=== PATIENT | male | born 1940 | race Caucasian/White ===

== ENCOUNTER 2018-06-04 07:45 | Emergency (ER) | payer MEDICARE, MEDICAID ==
[2018-06-04] MEDS ORDERED: NS 0.9% 1000 ML* 1,000 ML IV ONE (07:46)
[2018-06-04] MEDS ORDERED: Iodixanol* (CONTRAST) 320 MG/ML 100 ML SDV IV ONE (08:00)
--- NOTE | 2018-06-04 08:14 | RAD ---
HISTORY: Neurological changes/code farrar COMPARISONS: None TECHNIQUE: Multiple contiguous axial CT scans were obtained of the head without intravenous contrast. FINDINGS: HEMORRHAGE/INFARCT: There is no hemorrhage or acute infarct. MASSES/SHIFT: There is no mass or shift. EXTRA-AXIAL SPACES: There are no extra-axial fluid collections. SULCI AND VENTRICLES: There is mild diffuse and proportional enlargement of the sulci and ventricles. CEREBRUM: There are no focal parenchymal abnormalities. BRAINSTEM: There are no focal parenchymal abnormalities. CEREBELLUM: There are no focal parenchymal abnormalities. 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 There is calcification of the distal vertebral arteries, basilar artery, cavernous segments of the internal carotid arteries bilaterally. PARANASAL SINUSES: The paranasal sinuses are clear. ORBITS: The orbits are unremarkable. BONES AND SOFT TISSUE: No bone or soft tissue abnormalities are noted. OTHER: None IMPRESSION: 1. NO ACUTE INTRACRANIAL PATHOLOGY. 2. 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 CHRISTY IN THE EMERGENCY DEPARTMENT AT APPROXIMATELY 7:56 AM ON JUNE 04, 2018 .
--- NOTE | 2018-06-04 08:16 | ED ---
Neurological HPI - HPI Summary HPI Summary: Patient is a 77 y/o M BIBA w/ c/o possible clay jerome. 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 Pt's called EMS for stroke Sx, increased weakness and no talking. Pt declined from normal basline per . Last time patient was known to be well was yesterday at 2300. Patient reportedly woke up with Sx. Per EMS, patient is unresponsive, experiencing right-side deficit, and left side pinpoint deficit. Dr. Goss was present upon patient arrival. EMS reports no change in Sx since intial call except left eyeball. Patient was still unable to talk upon arrival and was on oxygen. He was immediately sent for CT scans, one with contrast and another without. Patient is a level 5 caveat. - History of Current Complaint Stated Complaint: CLAY JEROME Time Seen by Provider: 06/04/18 07:46 Hx Obtained From: Family/General Assignment Reporter - , EMS Onset/Duration: Started hours ago - onset this morning, Still Present Timing: Constant Neurological Deficit Location: RUE, RLE Character: Other: - patient is unresponsive, experiencing right side deficit ( right facial droop, inability to move RLE and RUE) and left side pinpoint deficit. Episode Lasting: Hours Associated Signs and Symptoms: Positive: Weakness - right sided deficit (right facial droop, no movement in RLE and RUE), left side pinpoint deficit, unresponsive., Impaired Speech - unresponsive - Allergy/Home Medications Allergies/Adverse Reactions: Allergies Allergy/AdvReac Type Severity Reaction Status Date / Time No Known Allergies Allergy Verified 06/04/18 08:30 Home Medications: Home Medications Unobtainable 06/04/18 [History Confirmed 06/04/18] PMH/Surg Hx/FS Hx/Imm Hx - Additional Comments History Additional Comments: level 5 caveat Review of Systems Neurological: Other - unable to talk, right side facial drop, unable to move RLE and RUE. left pinpoint deficit, left eyeball drift All Other Systems Reviewed And Are Negative: No - Comments Additional Review of Systems Comments: level 5 caveat Physical Exam - Summary Physical Exam Summary: GENERAL: Patient is a well developed and nourished male who is lying comfortable in the stretcher. Patient is not in any acute respiratory distress. HEAD AND FACE: Normocephalic EYES: PERRLA, EOMI x 2. EARS: Hearing grossly intact. MOUTH: Oropharynx within normal limits. NECK: Supple, trachea is midline, no adenopathy, no JVD, no carotid bruit. CHEST: Symmetric, no tenderness at palpation LUNGS: Clear to auscultation bilaterally. No wheezing or crackles. CVS: Regular rate and rhythm, S1 and S2 present, no murmurs or gallops appreciated. ABDOMEN: Soft, non-tender. Bowel sounds are normal. No abdominal abnormal pulsations. EXTREMITIES: Full ROM in all major joints, no edema, no cyanosis or clubbing. NEURO: Patient is unable to talk; see stroke scale, which was 26 SKIN: Dry and warm Triage Information Reviewed: Yes Vital Signs On Initial Exam: Initial Vitals Pulse Ox 94 06/04/18 07:47 Vital Signs Reviewed: Yes Diagnostics - Laboratory Result Diagrams: 06/04/18 08:26 06/04/18 08:26 Lab Statement: Any lab studies that have been ordered have been reviewed, and results considered in the medical decision making process. - Radiology CTA Head Xray Interpretation: Positive (See Comments) Radiology Interpretation Completed By: Radiologist - IMPRESSION: 1. ATHEROSCLEROSIS. 2. APPROXIMATELY 30% LEFT INTERNAL CAROTID ARTERY STENOSIS BY NASCET CRITERIA. NO RIGHT INTERNAL CAROTID ARTERY STENOSIS BY NASCET CRITERIA. 3. THERE IS MODERATE STENOSIS OF THE P1 SEGMENT OF THE RIGHT POSTERIOR CEREBRAL ARTERY. 4. 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 5. THERE ARE MULTIPLE THYROID NODULES WITH DIFFUSE ENLARGEMENT OF THE RIGHT LOBE OF THE THYROID. RECOMMEND CONSIDERATION OF CORRELATION WITH DEDICATED IMAGING OF THE THYROID IN THE NONACUTE SETTING. THIS REPORT WAS REVIEWED BY ED PHYSICIAN. - CT CT Head CT Interpretation: Positive (See Comments) CT Interpretation Completed By: Radiologist - No acute intracranial pathology; atherosclerosis with dolichoectasia of the vertebrobasilar system. This report was reviewed by ED physician. CXR CT Interpretation: Positive (See Comments) CT Interpretation Completed By: Radiologist - Low lung volumes with linear atelectasis of right lung base. This report was reviewed by ED physician. - EKG 0839 Cardiac Rate: NL - Rate of 88 BPM EKG Interpretation: some non-specific intraventricular delay, Q-waves in inferior leads NIH Scale - NIH Scale Level of Consciousness: Responds to Minor Stimulation Ask Patient the Month and His/Her Age: Neither Correct/Aphasic Ask Pt to Open/Close Eyes and Scrap Handler/Release Non-Paretic Hand: Neither Correctly Best Gaze (Only Horizontal Eye Movement): Partial Gaze Palsy Visual Field Testing: Partial Hemianopia Facial Paresis-Pt to Smile & Close Eyes or Grimace Symmetry: Partial Paralysis Motor Function - Right Arm: No Movement Motor Function - Left Arm: Drifts LT 10 seconds Motor Function - Right Leg: No Movement Motor Function - Left Leg: Drifts LT 10 seconds Limb Ataxia-Must be out of Proportion to Weakness Present: Absent Sensory (Use Pinprick to Test Arms/Legs/Trunk/Face): Normal Best Language (Describe Picture, Name Items): Mute/Global Aphasia Dysarthria (Read Several Words): Unintelligible or Mute Extinction and Inattention: Profound Jorge-Inattention Total Score: 26 Re-Evaluation - Re-Evaluation First Eval Re-Evaluation Time: 08:21 Comment: Patient returned from scans. In the room, patient is still unable to speak. He will be intubated. Course/Dx - Course Assessment/Plan: Patient is a 77 y/o M BIBA w/ c/o possible code charan. 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 Pt's called EMS for stroke Sx, increased weakness and no talking. Pt declined from normal basline per . Last time patient was known to be well was yesterday at 2300. Patient reportedly woke up with Sx. Per EMS, patient is unresponsive, experiencing right -side deficit, and left side pinpoint deficit. Dr. Goss was present upon patient arrival. EMS reports no change in Sx since intial call except left eyeball. Patient was still unable to talk upon arrival and was on oxygen. He was immediately sent for CT scans, one with contrast and another without. Patient is a level 5 caveat. NIH was 26. Patient was given 300 mg of rectal aspirin. Results of EKG, CXR, and CTs noted above. Patient was re-evaulated at 0821, still unable to talk, and intubated. Dr. Silva was consulted on patient's case. After seeing patient, he recommends transfer to [facility]. He called [facility] and Dr. Dillon accepts for admission. He will transfered via airlift and diagnosed with left acute ischemic MCA. - Diagnoses Provider Diagnoses: Acute ischemic left MCA stroke During the Visit The Following Alert/Code Occurred: Clay Rowley - called at 0732, 15 minutes prior to ETA - Physician Notifications Discussed Care Of Patient With: Kevin Scott Time Discussed With Above Provider: 07:55 Instructed by Provider To: Other - Dr. Abarca called to communicate results of CT Head to Dr. Goss. 0810 - Dr. Silva will come down to evaluate patient. 0841 -- Dr. Silva evaluated patient. He notes patient is likely experiencing left MCA, TPA not possible as last known time well was 2300 yesterday. No clot is visualized on studies done, Dr. Silva will call [facility] to attempt to have patient air-lifted. 0850 - patient will be transferred to [facility] for further care. Accepting for admission is Dr. Dillon. - Critical Care Time Critical Care Time: 30-74 min - 70 minutes Discharge - Sign-Out/Discharge Documenting (check all that apply): Patient Departure - transfer - Discharge Plan Condition: Fair Disposition: TRANS HIGHER LVL OF CARE FAC Referrals: No Primary Care Phys,NOPCP [Primary Care Provider] - - Billing Disposition and Condition Condition: FAIR Disposition: Trans Higher Lvl of Care Fac - Attestation Statements Document Initiated by Scribe: Yes Documenting Scribe: Joey Maurice Provider For Whom Scribe is Documenting (Include Credential): Arlene Goss Scribe Attestation: Joey Springer scribed for Arlene Goss on 06/04/18 at 0919. Scribe Documentation Reviewed: Yes Provider Attestation: The documentation as recorded by the Joey arvizu accurately reflects the service I personally performed and the decisions made by Arlene ya
[2018-06-04 08:41] LABS: Hematocrit 45 % (42-52); Hemoglobin 15.1 g/dl (14.0-18.0); Mean Corpuscular HGB Conc 34 g/dl (31-36); Mean Corpuscular Hemoglobin 31 pg (27-31); Mean Corpuscular Volume 93 fL (80-94); Mean Platelet Volume 8.8 um3 (7.4-10.4); Platelet Count 97 10^3/ul (150-450); Red Blood Count 4.83 10^6/ul (4.00-5.40); Red Cell Distribution Width 14 % (10.5-15); White Blood Count 5.9 10^3/ul (3.5-10.8)
--- NOTE | 2018-06-04 08:48 | RAD ---
HISTORY: stroke COMPARISONS: Head CT dated June 04, 2018 TECHNIQUE: Multiple contiguous axial CT scans were obtained of the head and neck after the administration of nonionic intravenous contrast timed to the systemic arterial phase of contrast enhancement. Coronal and sagittal multiplanar reformations are submitted for review. Multiple 3-D maximum intensity projection reconstructions are also submitted for review. FINDINGS: CTA NECK: AORTIC ARCH: There is a normal three-vessel branching pattern of the aortic arch. There is no ostial or proximal stenosis of the cephalic great vessels. RIGHT VERTEBRAL ARTERY: The right vertebral artery is patent along its course, without stenosis. LEFT VERTEBRAL ARTERY: The left vertebral artery is patent along its course, without stenosis. DOMINANCE: The vertebral arteries are codominant. RIGHT COMMON CAROTID ARTERY: The right common carotid artery is patent. The right carotid bifurcation occurs at C3-C4 RIGHT INTERNAL CAROTID ARTERY: There is atheromatous disease of the right carotid bifurcation, without right internal carotid artery stenosis by NASCET criteria. RIGHT EXTERNAL CAROTID ARTERY: The right external carotid artery is unremarkable. LEFT COMMON CAROTID ARTERY: The left common carotid artery is patent. The left carotid bifurcation occurs at C3-C4 LEFT INTERNAL CAROTID ARTERY: There is eccentric noncalcified plaque of the left carotid bifurcation resulting in approximately 30% left internal carotid artery stenosis by NASCET criteria. LEFT EXTERNAL CAROTID ARTERY: The left external carotid artery is unremarkable. VENOUS CIRCULATION: The venous system is unremarkable. SALIVARY GLANDS: The parotid glands, submandibular glands, sublingual glands are normal. NASAL CAVITY/NASOPHARYNX: The nasal cavity and nasopharynx are normal. ORAL CAVITY/OROPHARYNX: The oral cavity and oropharynx are unremarkable. LARYNGEAL APPARATUS/HYPOPHARYNX: The laryngeal apparatus and hypopharynx are normal. UPPER AIRWAY/UPPER ESOPHAGUS: The visualized upper airway and esophagus are normal. LUNG APICES: The lung apices are clear. THYROID GLAND: The thyroid gland is heterogeneous with diffuse enlargement of the right thyroid with multiple right-sided nodules. LYMPH NODES: There is no lymphadenopathy by size criteria. BONES AND SOFT TISSUES: Degenerative changes are noted of the spine. CTA HEAD: INTRACRANIAL CIRCULATION: Again noted is dolichoectasia of the vertebrobasilar system with calcification of the vertebral arteries, basilar artery, and cavernous segments of internal carotid arteries bilaterally. There is moderate stenosis of the P1 segment of the right posterior cerebral artery. The basilar tip is ectatic without saccular aneurysmal dilatation. Elsewhere, there is no aneurysm, vascular malformation, occlusion, or stenosis of the visualized intracranial circulation. The anterior communicating artery complex is clear. Bilateral posterior communicating arteries are identified. VENOUS CIRCULATION: The venous system is unremarkable. PERFUSION: There is no obvious parenchymal perfusion deficit. HEMORRHAGE/INFARCT: There is no hemorrhage or acute infarct. MASSES/SHIFT: There is no mass or shift. EXTRA-AXIAL SPACES: There are no extra-axial fluid collections. SULCI AND VENTRICLES: There is mild diffuse and proportional enlargement of the sulci and ventricles. CEREBRUM: There are no focal parenchymal abnormalities. BRAINSTEM: There are no focal parenchymal abnormalities. CEREBELLUM: There are no focal parenchymal abnormalities. PARANASAL SINUSES: The paranasal sinuses are clear. ORBITS: The orbits are unremarkable. BONES AND SOFT TISSUE: No bone or soft tissue abnormalities are noted. OTHER: There is no abnormal enhancement. IMPRESSION: 1. ATHEROSCLEROSIS. 2. APPROXIMATELY 30% LEFT INTERNAL CAROTID ARTERY STENOSIS BY NASCET CRITERIA. NO RIGHT INTERNAL CAROTID ARTERY STENOSIS BY NASCET CRITERIA. 3. THERE IS MODERATE STENOSIS OF THE P1 SEGMENT OF THE RIGHT POSTERIOR CEREBRAL ARTERY. 4. 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 5. THERE ARE MULTIPLE THYROID NODULES WITH DIFFUSE ENLARGEMENT OF THE RIGHT LOBE OF THE THYROID. RECOMMEND CONSIDERATION OF CORRELATION WITH DEDICATED IMAGING OF THE THYROID IN THE NONACUTE SETTING. CPT II Codes: 3100F
[2018-06-04 08:49] LABS: INR 0.95 (0.77-1.02)
--- NOTE | 2018-06-04 09:00 | RAD ---
HISTORY: Neurological Changes/Code Downs COMPARISONS: None VIEWS: 1: frontal portable view of the chest at 8:19 AM FINDINGS: LINES AND TUBES: None. CARDIOMEDIASTINAL SILHOUETTE: The cardiomediastinal silhouette is normal for portable technique. PLEURA: The costophrenic angles are sharp. No pleural abnormalities are noted. LUNG PARENCHYMA: The lung volumes are low. There is linear opacification of the right lung base. ABDOMEN: The upper abdomen is clear. There is no subphrenic gas. BONES AND SOFT TISSUES: No bone or soft tissue abnormalities are noted. IMPRESSION: LOW LUNG VOLUMES WITH LINEAR ATELECTASIS OF THE RIGHT LUNG BASE.
[2018-06-04 09:12] LABS: ABS Basophils 0 10^3/ul (0-0.2); ABS Eosinophils 0.1 10^3/ul (0-0.6); ABS Lymphocytes 1.3 10^3/ul (1.0-4.8); ABS Monocytes 0.3 10^3/ul (0-0.8); ABS Neutrophils 4.2 10^3/ul (1.5-7.7); ABS Nucleated RBC 0 10^3/ul; Eosinophil % 1.7 % (0-6); Lymphocyte % 21.4 % (25-47); Nucleated Red Blood Cells % 0
[2018-06-04] MEDS ORDERED: Aspirin SUPP* 300 MG ONE (09:17)
[2018-06-04 09:55] VITALS: BP 153/101
[2018-06-04] MEDS ORDERED: Aspirin SUPP* 300 MG PR SCH (10:00)
--- NOTE | 2018-06-04 11:45 | CONS ---
NEUROLOGY CONSULTATION REPORT: DATE OF CONSULT: 06/04/18 Code Downs was activated to evaluate the patient for right-sided weakness and aphasia. CHIEF COMPLAINT: Nonverbal. HISTORY OF PRESENT ILLNESS: Jacob Tracy is a 77-year-old man who has history of hypertension and dyslipidemia who had a sudden onset of right hemineglect, inability to speak, and right-sided weakness. The patient was last known well at 11:30 p.m. last night on 06/03/18. He was watching [employer] with his . Spouse stated that she woke up at 6:30 this morning and noticed that the patient was unable to move the right side and was sitting at the edge of the bed. She contacted EMS and the patient was transported to [facility]. Pre- arrival stroke call was called at 7:31. Estimated time of arrival was 15 minutes. The patient arrived at 7:46 a.m. Neurology was consulted and called at 8:20 a.m. I did not receive the prenotification pages. Teleneurology was not consulted. NIH stroke scale upon arrival was 23. Specifically, the patient was able to arouse to minor stimulus, he was aphasic, he was unable to perform any task, he had forced gaze palsy and cannot be overcome, he has complete hemianopia, he had partial paralysis of the lower face , the left arm had no drift, the right arm had no effort against resist gravity initially, then the left leg had no drift for 5 seconds and the right leg had some effort against gravity. The patient had ataxia in 1 limb. Sensation was complete loss on the right side. The patient was mute and globally aphasic. Dysarthria was unable to test and he had extension to bilateral stimulation on the right. Total score 23. At 9 a.m., the patient's neurological evaluation was assessed and the patient did have a subtle improvement, but still with significant disabling deficits. NIH stroke scale was changed with a total score of 20. A CT head was completed and showed no evidence of intracranial hemorrhage. CTA of the head was completed and showed no evidence of large vessel occlusion. 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 I discussed the case in detail with Dr. Scott. We reviewed the images via telephone at 8:55 a.m. PAST MEDICAL HISTORY: Hypertension, dyslipidemia, hernia repair. No recent surgical intervention procedures. ALLERGIES: No known drug allergies. MEDICATIONS: 1. Atenolol 100 mg daily. 2. Doxazosin 8 mg daily. 3. Atorvastatin 20 mg daily. 4. Low dose 81 mg of aspirin. 5. Loratadine 10 mg as needed. FAMILY HISTORY: Both father and mother suffered from coronary artery disease. No history of strokes in the family. SOCIAL HISTORY: The patient is retired. He lives with his spouse. He denied any tobacco use. REVIEW OF SYSTEMS: Unable to obtain due to the patient's aphasia. PHYSICAL EXAMINATION: Vitals: Temperature of 97.9, pulse of 92, respiratory rate of 16, oxygen saturation of 95, blood pressure 153/102. General: Well- nourished, well-developed man, in no acute distress. He appears slightly disoriented due to aphasia. Head: Normocephalic without obvious abnormality. Eyes: Conjunctivae and corneas were clear. Neck is supple and symmetrical. No carotid bruits. Lungs are clear to auscultation bilaterally. Cardiovascular : Regular rhythm. Normal S1, S2. Extremities: Normal range of motion with no cyanosis. Skin: No skin lesions or lacerations. Psych: Unable to assess due to aphasia. Mental Status: Awake, does not seem to be alert. He pulled off his IV line. He does have global aphasia. He cannot comprehend, unable to have any verbal output, difficulty naming, repetition, incomprehension. Cranial Nerves: Right homonymous hemianopsia as he does not blink to threat on the right side, but does so on the left. He cannot overcome midline to look towards the right. He did grimace to pinprick on the left side of the face, but not the right. He has left facial droop. Tongue is symmetrical in midline with no atrophy. Motor: Right hemiparesis with increase in tone in the right upper extremity. He is able to move the left arm spontaneously. He is able to move the left leg spontaneously and against gravity when lifted up. He does have significant weakness in the right upper extremity rated as 1-2/5. The right lower extremity is approximately 3-4/5. Reflexes: Right/left brachioradialis 3/2, biceps 3/2, triceps 3/2, patella 2/1, ankle 1/0, plantar mute/flexor sensation, coordination, and gait were not assessed due to patient' s neurological deficits. LABORATORY DATA: We do not have any current labs. I had requested that an Accu - Chek to be obtained immediately. ASSESSMENT/RECOMMENDATION: Mr. Jacob Tracy is a 77-year-old man who presented with sudden onset of global aphasia, right facial droop, and right hemiparesis. Last known well time was 11:30 p.m. on 06/03/18. Symptoms onset approximately 06:30 a.m. NIH stroke scale is 23, improved to 20. After lying in the bed, the patient is slightly flat as well as elevating his blood pressure systolic in the 150s. However, he continues to have significant deficits. I spoke to Dr. Thompson from [facility] and discussed the case in detail. Dr. Thompson accepted the patient for further evaluation in the Neuro ICU Unit. Technically, the patient is within a 24-hour window for some possible mechanical thrombectomy versus IA tPA if there is a perfusion mismatch. I attempted to get an MRI stat here at [facility] prior to transferring the patient out, but however was denied given that there was a patient already obtaining an MRI study. We have agreed to air flight the patient to [facility]. The patient was accepted at [facility] at 08:48 a.m. We do not suspect the patient is having seizures as he does not have any history of seizures in the past. The patient's symptoms are fixed and all correlate to a left hemispheric dysfunction. Given the acuity of the symptoms, a vascular phenomenon is the most likely diagnosis. I do not suspect the patient is having a pontine infarct given the degree of aphasia. However, anarthria could also be very much presenting similarly in an acute presentation. I had requested to obtain an Accu Chek before flying the patient out. I also would like to get to give the patient 300 mg of suppository aspirin before he leaves. The blood pressure goal parameters should be between systolic blood pressure of 140 to less than 180. Neuro checks should be done every 15 minutes from now till the patient arrives to [facility]. TIME SPENT: I spent a total of 85 critical care minutes and greater than 50% was spent directly reviewing the medical chart, obtaining history, examining the patient, reviewing the radiographic imaging, discussing the case with Radiology, updating Mrs. Tracy at bedside throughout the whole process, and discussing the treatment plan with Dr. Goss. We all agreed to air-flight the patient for further evaluation. [id number]/[facility] #: [id number] [facility]
== END 2018-06-04 09:54 | disposition short-term general hospital (02) ==
LOC: ED 07:45
DX: I63.412 Cerebral infarction due to embolism of left middle cerebral artery (principal); R53.1 Weakness
CPT/HCPCS: 36415; 70450; 70496; 70498; 71045; 80053; 80061; 83605; 84484; 85025; 85060; 85610; 85730; 86850; 86900; 86901; 93005; 99285; A9270-GY; Q9967